=== PATIENT | male | born 1970 | race Caucasian/White ===

== ENCOUNTER → 2018-06-10 08:54 | Outpatient (CLI) | payer BC | END | disposition home or self-care (01) | LOC: D.MRI 08:54 | DX: M54.5 Low back pain (principal) ==

== ENCOUNTER → 2018-12-14 08:12 | Outpatient (CLI) | payer BC | END | disposition home or self-care (01) | LOC: D.CT 08:12 | DX: G43.909 Migraine, unspecified, not intractable, without status migrainosus (principal) ==